=== PATIENT | female | born 1970 | race Caucasian/White ===

== ENCOUNTER → 2016-07-15 | Outpatient (CLI) | payer MEDICARE, OTHER | LOC: US 14:00 | DX: M79.661 Pain in right lower leg (principal); Z88.0 Allergy status to penicillin | CPT/HCPCS: 93926; 93971 ==

== ENCOUNTER → 2020-10-21 | Outpatient (CLI) | payer MEDICARE ==
[~2020-10-21] MED LIST: ALEVE220 M1 PO; AMITRIPTYLINE H50 MG PO; CYANOCOBAL1000 MCG/1 SQ; ELIQUIS 2.5 MG2.5 MG PO; HYDROCHLOROTHIA25 MG PO; HYDROCODON-ACE1 EAC2 PO; LEVOTHYROXINE50 MCG PO; METFORMIN HCL500 MG PO; METOPROLOL TART25 MG PO; PEPCID40 MG PO; RELAFEN500 MG PO; VITAMIN D21250 MCG PO
[2020-10-21 13:48] LABS: BUN/CREATININE RATIO 14 (0-10)
[2020-10-21 14:07] LABS: HEMOGLOBIN 14.3 gm/dl (12.3-15.3); RED BLOOD COUNT 5.45 M/UL (4.00-5.10); WHITE BLOOD COUNT 9.6 K/UL (4.5-11.0)
== END ==
LOC: OPSV2 11:00
PROVIDERS: Orthopaedic Surgery
DX: Z01.818 Encounter for other preprocedural examination (principal); M14.66 Charcot's joint, knee; R94.31 Abnormal electrocardiogram [ECG] [EKG]
CPT/HCPCS: 36415; 80048; 81001; 83036; 85025; 87077; 87081; 87086; 87186; 93005

== ENCOUNTER → 2020-10-29 | Outpatient (CLI) | payer MEDICARE ==
[2020-10-29 11:54] LABS: BUN/CREATININE RATIO 13 (0-10)
== END ==
LOC: LAB 09:56
PROVIDERS: Orthopaedic Surgery
DX: Z53.8 Procedure and treatment not carried out for other reasons (principal)
CPT/HCPCS: 36415; 80048; 86850; 86900; 86901

== ENCOUNTER 2020-10-30 08:02 | Inpatient (IN) | payer MEDICARE ==
[~2020-10-30] VITALS: Ht 160 cm; Wt 121.6 kg
[~2020-10-30 08:02] MED LIST changes: -ELIQUIS 2.5 MG2.5 MG PO; -HYDROCODON-ACE1 EAC2 PO
[2020-10-30] MEDS ORDERED: HYDROCODON-ACE1 EAC2 PO (17:38)
[2020-10-31 05:18] LABS: HEMOGLOBIN 11.3 gm/dl (12.3-15.3); RED BLOOD COUNT 4.36 M/UL (4.00-5.10); WHITE BLOOD COUNT 17.5 K/UL (4.5-11.0)
[2020-10-31 05:45] LABS: BUN/CREATININE RATIO 15 (0-10)
[2020-11-01 05:14] LABS: HEMOGLOBIN 9.8 gm/dl (12.3-15.3)
[2020-11-01 05:16] LABS: RED BLOOD COUNT 3.73 M/UL (4.00-5.10); WHITE BLOOD COUNT 10.4 K/UL (4.5-11.0)
[2020-11-01 05:37] LABS: BUN/CREATININE RATIO 11 (0-10)
[2020-11-01] MEDS ORDERED: ELIQUIS 2.5 MG2.5 MG PO (14:57)
== END 2020-11-01 18:13 | disposition home health service (06) | DRG 470 ==
LOC: ZOBSOF 08:02 → CCU 18:01
PROVIDERS: ADMIT Orthopaedic Surgery
PROC: 0SRD0J9 Replacement of Left Knee Joint with Synthetic Substitute, Cemented, Open Approach (ICD-10-PCS; principal; 2020-10-30 12:45)
DX: M23.52 Chronic instability of knee, left knee (principal); A52.16 Charcot's arthropathy (tabetic); Z68.42 Body mass index [BMI] 45.0-49.9, adult; M24.362 Pathological dislocation of left knee, not elsewhere classified; I10 Essential (primary) hypertension; K21.9 Gastro-esophageal reflux disease without esophagitis; R09.02 Hypoxemia; Z20.822 Contact with and (suspected) exposure to COVID-19; E03.9 Hypothyroidism, unspecified; M17.12 Unilateral primary osteoarthritis, left knee; T50.995A Adverse effect of other drugs, medicaments and biological substances, initial encounter; E11.610 Type 2 diabetes mellitus with diabetic neuropathic arthropathy; E66.9 Obesity, unspecified; F32.9 Major depressive disorder, single episode, unspecified; Z98.1 Arthrodesis status; Z56.0 Unemployment, unspecified; Z90.49 Acquired absence of other specified parts of digestive tract; Z93.0 Tracheostomy status; Z88.1 Allergy status to other antibiotic agents; Z88.0 Allergy status to penicillin; Z79.4 Long term (current) use of insulin
CPT/HCPCS: 36415; 73552; 73560; 73590; 76000; 80048; 82962; 84132; 84703; 85025; 86850; 86900; 86901; 97116; 97116-GP-CQ; 97161; 97166; 97530; 97530-GP-CQ; 97535; C1776; J0690; J1100; J1170; J1644; J2001; J2250; J2270; J2405; J2704; J2795; J3010; J3370; J7030; J7050; J7120; U0003

== ENCOUNTER → 2021-05-07 | Outpatient (CLI) | payer MEDICARE ==
[~2021-05-07] MED LIST changes: +ELIQUIS 2.5 MG2.5 MG PO; +HYDROCODON-ACE1 EAC2 PO
== END ==
LOC: HEART 5 07:40
DX: I49.8 Other specified cardiac arrhythmias (principal)

== ENCOUNTER → 2021-07-08 | Outpatient (CLI) | payer MEDICARE | LOC: HEART 5 08:47 | DX: R00.2 Palpitations (principal); R07.9 Chest pain, unspecified | CPT/HCPCS: 78452; A9502; J2785 ==